=== PATIENT | female | born 1960 | race Caucasian/White ===

== ENCOUNTER → 2019-07-26 17:09 | Outpatient (BNVA) | payer MEDICAID, SELFPAY | PROVIDERS: Visit Provider Nurse Practitioner Family | DX: Z13.6 Encounter for screening for cardiovascular disorders (principal); J44.9 Chronic obstructive pulmonary disease, unspecified; M51.36 Other intervertebral disc degeneration, lumbar region; N30.01 Acute cystitis with hematuria; N32.81 Overactive bladder | CPT/HCPCS: 80053; 80061; 81003; 85025; 87077; 87086; 87186 ==

== ENCOUNTER 2019-08-23 06:00 | Outpatient (RCR) | payer BC, SELFPAY | END 2019-08-28 23:59 | disposition home or self-care (01) | LOC: TPT 06:00 | PROVIDERS: PCP Nurse Practitioner Family; Referring Provider Nurse Practitioner Family; Visit Provider Nurse Practitioner Family | DX: M51.36 Other intervertebral disc degeneration, lumbar region (principal) | CPT/HCPCS: 97110; 97162; G0283 ==

== ENCOUNTER 2019-08-29 06:00 | Outpatient (RCR) | payer BC, SELFPAY | END 2019-09-27 23:59 | disposition home or self-care (01) | LOC: TPT 06:00 | PROVIDERS: PCP Nurse Practitioner Family; Visit Provider Nurse Practitioner Family | DX: M51.36 Other intervertebral disc degeneration, lumbar region (principal) | CPT/HCPCS: 97110; 97140; G0283 ==

== ENCOUNTER 2019-09-28 06:00 | Outpatient (RCR) | payer BC, SELFPAY | END 2019-10-28 23:59 | disposition home or self-care (01) | LOC: TPT 06:00 | PROVIDERS: PCP Nurse Practitioner Family; Visit Provider Nurse Practitioner Family | DX: M51.36 Other intervertebral disc degeneration, lumbar region (principal) | CPT/HCPCS: 97110; 97140; G0283 ==

== ENCOUNTER 2019-10-29 06:00 | Outpatient (RCR) | payer BC, SELFPAY | END 2019-11-28 23:59 | disposition home or self-care (01) | LOC: TPT 06:00 | PROVIDERS: PCP Nurse Practitioner Family; Visit Provider Nurse Practitioner Family | DX: M51.36 Other intervertebral disc degeneration, lumbar region (principal) | CPT/HCPCS: 97110; 97140; G0283 ==

== ENCOUNTER 2022-10-18 20:57 | Emergency (ER) | payer BC, SELFPAY ==
[2022-10-18 20:59] VITALS: BP 136/53; PULSE 86; RESP 18; TEMP 36.7; O2SAT 100; BMI 24.0
--- NOTE | 2022-10-18 21:04 | XRR_ITS ---
PROCEDURE INFORMATION: Exam: XR Chest Exam date and time: 10/18/2022 9:31 PM Age: 61 years old Clinical indication: Pain; Chest pressure; Additional info: Cp TECHNIQUE: Imaging protocol: Radiologic exam of the chest. Views: 1 view. COMPARISON: CR XR chest 1V [id number] 08/05/2017 10:56 PM FINDINGS: Limitations: The study is made with less than full inspiration. Tubes, catheters and devices: There are sternal wires consistent with previous sternotomy incision. Lungs: Visualized portions of the lungs are clear. Pleural spaces: Unremarkable. No pleural effusion. No pneumothorax. Heart/Mediastinum: Prosthetic aortic valve is identified. Heart is within normal limits of size. Bones/joints: Unremarkable. XR/XR chest 1V portable [id number] IMPRESSION: 1. No acute infiltrates. 2. Findings of aortic valve replacement new compared with 08/05/2017.
--- NOTE | 2022-10-18 21:04 | ECG_ITS ---
[facility] Test Date: 2022-10-18 Pat Name: Shira Cabral Department: Room: Gender: Female Puff Ironer: : 1960 Requested By: Lakihsa Mohna Order Number: [id number] Yandy MD: Abigail Burch M.D. Measurements Intervals [place] Rate: 83 P: 57 OR: 157 QRS: 54 QRSD: 93 T: 18 QT: 369 QTc: 434 Interpretive Statements SINUS RHYTHM Compared to ECG 08/05/2017 22:47:03 Sinus bradycardia no longer present T-wave abnormality no longer present Electronically Signed On 10-19-2022 11:24:15 CDT by Abigail Burch M.D. [email or web address]
--- NOTE | 2022-10-18 21:16 | W.ED.SOB ---
HPI - SOB/Dyspnea General: Chief Complaint: Shortness of Breath/Dyspnea Stated Complaint: Chest Pain w/ SOB Time Seen by Provider: 10/18/22 21:04 Source: patient and EMS Mode of arrival: EMS Limitations: no limitations History of Present Illness: HPI Narrative: 61-year-old female states she has been having sharp pain in the center of her chest along with shortness of breath over the last 2 days. She denies any worsening improving factors. States the pains been sharp in nature has been constant. She does have COPD states taking breathing treatments but has not had any improvement pulse ox here is 99%. Associated symptoms: Reports chest pain; Deny abdominal pain, fever(s), nausea or vomiting Review of Systems Const: Denies: fever(s), chills, body aches or change in appetite Eyes: Denies: blurry vision or eye discomfort ENMT: Denies: throat pain or dental pain Card: Reports: chest pain Resp: Reports: dyspnea GI: Denies: abdominal pain, nausea, vomiting or diarrhea : Denies: dysuria Musc: Denies: neck pain or back pain Skin/Breast: Denies: rash All/Imm: Denies: urticaria PFSH ED PFSH: Medical History DDD (degenerative disc disease) Overactive bladder Family History Grandmother Cancer breast Father , in his 80's Lung disease emphysema Social History Smoking and tobacco status: never smoked Second hand smoke exposure: Yes Alcohol intake: current Alcohol intake frequency: 0-2 Drinks per Day Substance/Drug Use: never Lives independently: No Household members: family Marital status: service: No Current occupational status: employed Current occupation: [employer] Pets and animals: Yes Current gender identity: Female Physical Exam Const: COMMON NORMALS: no acute distress and patient oriented x3 HENMT: COMMON NORMALS: normocephalic and atraumatic HEAD & SCALP: normocephalic and atraumatic Eye: COMMON NORMALS: conjunctivae normal CONJUNCTIVA: Yes conjunctivae normal Neck/C-Spine: COMMON NORMALS: full ROM and supple Chest: COMMONS NORMALS: normal inspection of the chest OTHER: Point tender in the center of his chest reproduces pain Resp: COMMON NORMALS: normal respiratory effort, No retractions, No use of accessory muscles and clear to auscultation bilaterally AUSCULTATION: clear to auscultation bilaterally Cardio: COMMON NORMALS: regular rate, regular rhythm and No murmurs present (Cardio) RATE: regular rate RHYTHM: regular rhythm GI: COMMON NORMALS: Normal to inspection, nondistended, normoactive bowel sounds present, Soft to palpation, non-tender and no masses PALPATION: Yes Soft to palpation Extremity: COMMON NORMALS: normal to inspection and full ROM Neuro: COMMON NORMALS: patient oriented x3, moves all extremities and no focal motor deficits Psych: COMMON NORMALS: mental status grossly normal, Normal thought process present and cooperative THOUGHT PROCESS: Normal thought process present Skin: COMMON NORMALS: no rashes or lesions noted and no wounds GENERAL SKIN EXAM: no rashes or lesions noted Course Vital Signs: Vital signs: Vital Signs Temperature 98.1 F 10/18/22 20:59 Pulse Rate 70 10/18/22 23:07 Respiratory Rate 16 10/18/22 23:07 Blood Pressure 105/57 10/18/22 23:07 Pulse Oximetry 95 10/18/22 23:07 Oxygen Delivery Me thod Room Air 10/18/22 20:59 MDM - SOB/Dyspnea Medical Decision Making Patient presents for chest pain atypical in nature she is point tender reproducible pain her troponin here is negative D-dimer is negative her blood works been normal vitals within normal no signs of ACS or dissection she is stable for discharge she is to follow-up with her PCP and return if worsening. Medical Records I reviewed the patient's medical records. Lab Data I reviewed the patient's lab results. 10/18/22 21:28 10/18/22 21:28 Labs/Radiology: Radiology Impressions Chest X-Ray 10/18/22 21:04 IMPRESSION: 1. No acute infiltrates. 2. Findings of aortic valve replacement new compared with 08/05/2017. Laboratory Results WBC 9.3 10^3/uL (4.0-10.0) 10/18/22 21:28 RBC 4.63 10^6/uL (4.1-5.3) 10/18/22 21:28 Hgb 12.5 g/dL (11.5-15.3) 10/18/22: Hct 39.4 % (37.0-47.0) 10/18/22: MCV 85.1 fl (81-99) 10/18/22: MCH 27.0 pg (28.0-34.0) L 10/18/22: MCHC 31.7 g/dL (30.0-36.0) 10/18/22: RDW 14.7 % (12.1-15.1) 10/18/22: Plt Count 148 10^3/cmm (130-400) 10/18/22: MPV 11.3 fL (7.4-10.4) H 10/18/22 Neut % (Auto) 74.7 % 10/18/22: Lymph % (Auto) 16.8 % 10/18/22: [place] % (Auto) 5.9 % 10/18/22: Eos % (Auto) 1.9 % 10/18/22: Baso % (Auto) 0.5 % 10/18/22 Neut # (Auto) 6.97 10^3/uL (1.8-7.7) 10/18/22 Lymph # (Auto) 1.6 10^3/uL (0.8-4.8) 10/18/22: [place] # (Auto) 0.6 10^3/uL (0.2-0.9) 10/18/22: Eos # (Auto) 0.2 10^3/uL (0.0-0.8) 10/18/22: Baso # (Auto) 0.1 10^3/uL (0.0-0.1) 10/18/22 Nucleated RBC % (auto) 0 % 10/18/22 Nucleated RBCs # 0.0 /100WBC 10/18/22 D-Dimer 0.28 ug/mIFEU (0-0.59) 10/18/22: Sodium 145 mmol/L (136-145) 10/18/22: Potassium 3.8 mmol/L (3.5-5.1) 10/18/22 21:28 Chloride 109 mmol/L (98-107) H 10/18/22 21:28 Carbon Dioxide 25 mmol/L (22-29) 10/18/22 21:28 Anion Gap 14.8 (5-19) 10/18/22 21:28 BUN 12 mg/dL (8-23) 10/18/22 21:28 Creatinine 0.8 mg/dL (0.5-0.9) 10/18/22 21:28 GFR Calculation 72.9 mL/min (90-130) L 10/18/22 21:28 Glucose 99 mg/dL (65-115) 10/18/22 21: Calculated Osmolality 300 mOsm/kg (285-295) H 10/18/22 21:28 Calcium 9.2 mg/dL (8.5-10.5) 10/18/22 21:28 Total Bilirubin 0.3 mg/dL (0.15-1.2) 10/18/22 21:28 AST 15 U/L (0-32) 10/18/22 21:28 ALT 13 U/L (0-33) 10/18/22 21:28 Alkaline Phosphatase 139 U/L (35-105) H 10/18/22 21:28 Troponin T Baseline 6 ng/L (0-10) 10/18/22 21:28 NT-Pro-B Natriuret Pep 384 pg/mL (0-125) H 10/18/22 21:28 Total Protein 6.2 g/dL (6.6-8.7) L 10/18/22 21:28 Albumin 4.2 g/dL (3.5-5.2) 10/18/22 21:28 Globulin 2.0 g/dL (1.3-4.6) 10/18/22 21:28 EKG Data EKG 1: I personally reviewed and interpreted this EKG as follows: EKG Interpretation Date: 10/18/22 EKG interpretation time: 21:16 Interpretation: nsr hr [address] or t wave abnormalities qrs 93 qtc 408 Discharge Plan Discharge Patient Disposition: Home Clinical Impression: Chest pain, Shortness of breath Condition: Stable Prescriptions: No Action gabapentin 300 mg capsule 300 mg PO TID 30 Days Qty: 90 2RF nitroglycerin [Nitrostat] 0.4 mg tablet, sublingual 0.4 mg SUBLINGUAL Q5M PRN metoprolol tartrate 50 mg tablet 50 mg PO BID multivitamin [Daily Multi-Vitamin] Tablet 1 tab PO DAILY methylprednisolone [Medrol (Froilan)] 4 mg tablets,dose pack See Rx Instructions PO PER PKG DIR Qty: 21 0RF Rx Instructions: PO PER PKG DIR cyclobenzaprine 10 mg tablet 10 mg PO TID PRN (Reason: muscle spasm) Qty: 30 0RF Spiriva with HandiHaler 18 mcg capsule, w/inhalation device See Rx Instructions .ROUTE .COMPLEX Qty: 30 1RF Dose Instruction: inhale the contents of 1 capsule via handihaler every day Rx Instructions: inhale the contents of 1 capsule via handihaler every day montelukast 10 mg tablet See Rx Instructions .ROUTE .COMPLEX Qty: 30 1RF Dose Instruction: TAKE ONE TABLET BY MOUTH EVERY DAY Rx Instructions: TAKE ONE TABLET BY MOUTH EVERY DAY oxybutynin chloride 5 mg tablet extended release 24hr See Rx Instructions .ROUTE .COMPLEX Qty: 30 0RF Dose Instruction: TAKE ONE TABLET BY MOUTH EVERY DAY Rx Instructions: TAKE ONE TABLET BY MOUTH EVERY DAY albuterol sulfate 90 mcg/actuation HFA aerosol inhaler See Rx Instructions .ROUTE .COMPLEX Qty: 8.5 1RF Dose Instruction: inhale TWO PUFF BY MOUTH EVERY 6 HOURS As Needed FOR shortness of breath OR wheezing Rx Instructions: inhale TWO PUFF BY MOUTH EVERY 6 HOURS As Needed FOR shortness of breath OR wheezing meloxicam 15 mg tablet See Rx Instructions .ROUTE .COMPLEX Qty: 14 0RF Dose Instruction: TAKE ONE TABLET BY MOUTH DAILY Rx Instructions: TAKE ONE TABLET BY MOUTH DAILY Discharge Orders: Discharge ED (Routine); Ordered 10/18/22 Ordered By: Lakisha Mohan Referrals: Jess Pollard FNP [Primary Care Provider] - 1-3 days Discharge Diet: Advance as tolerated Discharge Activity: Resume usual activity Patient Instructions: Chest Pain (ED) Coding Level of Care Code ED Legal Analyst for Damian Pugh
[2022-10-18 21:19] VITALS: RESP 16
[2022-10-18] MEDS: morphine 4 mg/mL SDV 1 mL IVP (21:19)
[2022-10-18] MEDS: ondansetron 2 mg/ML SDV 2 mL 4 MG IVP (21:19)
[2022-10-18 21:21] VITALS: BP 136/53; PULSE 83; RESP 16; O2SAT 97
[2022-10-18 21:45] LABS: Basophils # 0.1 10^3/uL (0.0-0.1); Basophils % 0.5 %; Eosinophils # 0.2 10^3/uL (0.0-0.8); Eosinophils % 1.9 %; Hematocrit 39.4 % (37.0-47.0); Hemoglobin 12.5 g/dL (11.5-15.3); Lymphocytes # 1.6 10^3/uL (0.8-4.8); Lymphocytes % 16.8 %; Mean Corpuscular HGB Conc 31.7 g/dL (30.0-36.0); Mean Corpuscular Volume 85.1 fl (81-99); Mean Platelet Volume 11.3 fL (7.4-10.4); Monocytes # 0.6 10^3/uL (0.2-0.9); Monocytes % 5.9 %; Neutrophils # 6.97 10^3/uL (1.8-7.7); Neutrophils % 74.7 %; Nucleated Red Blood Cells % 0 %; Platelet Count 148 10^3/cmm (130-400); Red Blood Count 4.63 10^6/uL (4.1-5.3); Red Cell Distribution Width 14.7 % (12.1-15.1); White Blood Count 9.3 10^3/uL (4.0-10.0)
[2022-10-18 21:54] LABS: D Dimer 0.28 ug/mIFEU (0-0.59)
[2022-10-18 22:42] LABS: Alanine Aminotransferase 13 U/L (0-33); Albumin Level 4.2 g/dL (3.5-5.2); Alkaline Phosphatase 139 U/L (35-105); Anion Gap 14.8 (5-19); Aspartate Amino Transferase 15 U/L (0-32); Blood Urea Nitrogen 12 mg/dL (8-23); Calcium 9.2 mg/dL (8.5-10.5); Carbon Dioxide 25 mmol/L (22-29); Chloride 109 mmol/L (98-107); Glomerular Filtration Rate 72.9 mL/min (90-130); Glucose 99 mg/dL (65-115); NT Pro B Type Natriuretic Pept 384 pg/mL (0-125); Osmolality Calculated 300 mOsm/kg (285-295); Potassium 3.8 mmol/L (3.5-5.1); Sodium 145 mmol/L (136-145); Total Bilirubin 0.3 mg/dL (0.15-1.2); Total Protein 6.2 g/dL (6.6-8.7)
[2022-10-18 22:43] LABS: Troponin(5th) Baseline 6 ng/L (0-10)
[2022-10-18 23:07] VITALS: BP 105/57; PULSE 70; RESP 16; O2SAT 95
== END 2022-10-18 23:09 | disposition home or self-care (01) ==
PROVIDERS: Emergency Provider Emergency Medicine; PCP Nurse Practitioner Family
DX: R07.9 Chest pain, unspecified (principal); R06.02 Shortness of breath; Z77.22 Contact with and (suspected) exposure to environmental tobacco smoke (acute) (chronic)
CPT/HCPCS: 36415; 71045; 80053; 83880; 84484; 85025; 85378; 93005; 96374; 96375; 99285; J2270; J2405